=== PATIENT | female | born 1980 | race Caucasian/White ===

== ENCOUNTER → 2016-08-12 | Outpatient (CLI) | payer OTHER ==
[~2016-08-12] MED LIST: LOSA50TA6 PO; SERT50TA5 PO
== END | disposition home or self-care (01) ==
LOC: CFH 13:27
PROVIDERS: ATTEND Obstetrics & Gynecology
DX: N64.4 Mastodynia (principal)
CPT/HCPCS: 76642; G0204; 77051; 77063; G0279

== ENCOUNTER → 2016-09-08 | Outpatient (CLI) | payer OTHER | END | disposition home or self-care (01) | LOC: CFH 13:14 | PROVIDERS: ATTEND Nurse Practitioner Family | DX: M47.894 Other spondylosis, thoracic region (principal); Z90.49 Acquired absence of other specified parts of digestive tract | CPT/HCPCS: 72072 ==

== ENCOUNTER → 2019-07-25 | Outpatient (CLI) | payer OTHER ==
[~2019-07-25] MED LIST changes: +LOSA50TA14 PO; -LOSA50TA6 PO; +OMNIPAQUE 350 MG/ML, 150 ML BOTTLE ONE; +SERT50TA28 PO; -SERT50TA5 PO
== END | disposition home or self-care (01) ==
LOC: CFH 10:03
PROVIDERS: ATTEND Urology
DX: N83.202 Unspecified ovarian cyst, left side (principal); K76.89 Other specified diseases of liver; K76.0 Fatty (change of) liver, not elsewhere classified; R31.0 Gross hematuria
CPT/HCPCS: 74178; Q9967